=== PATIENT | male | born 1950 | race Caucasian/White ===

== ENCOUNTER → 2016-10-07 | Day surgery (SDC) | payer MEDICARE, OTHER ==
[~2016-10-07] MED LIST: ANGIOMAX 250 MG VIAL IV ONE; ASPI81CH43 PO; CLOP75TA41 PO; ENAL20TA70 PO; FOLI1TAB6 PO; IOHEXOL 350 MG/ML 100ML IJ ONE; LIDOCAINE 2%HCL (LOCAL ANESTH.) INJ 20ML MDV ONE; MAGN400T23 PO; MET50T PO; METH2.5T3 PO; MIDAZOLAM HCL 1MG/1ML-2 ML VIAL ONE; PANT40T PO; SIMV-13 PO; SODIUM CHL 0.9% 0 ML ONE; SPIR25TA89 PO; TERA5CAP42 PO; TRAM50TA2 PO; fentaNYL CITRATE 100 MCG/2 ML VL ONE
== END | disposition home or self-care (01) ==
LOC: CATH 10:33
PROVIDERS: ATTEND Internal Medicine Cardiovascular Disease
DX: R94.39 Abnormal result of other cardiovascular function study (principal); I10 Essential (primary) hypertension; E78.5 Hyperlipidemia, unspecified
CPT/HCPCS: 93458; C1760; C1894; J1644; J2250; J3010; J7030; Q9967; 99152